=== PATIENT | female | born 1930 | race Caucasian/White ===

== ENCOUNTER 2017-10-02 14:24 | Inpatient (IN) | payer OTHER ==
[~2017-10-02] VITALS: Ht 162.6 cm; Wt 57.9 kg
[2017-10-02 15:40] LABS: HEMATOCRIT 34.1 % (36.0-46.0); HEMOGLOBIN 11.6 G/DL (11.9-15.5); MCH 30.4 PG (29.0-34.0); MCV 89.5 FL (83-99); PLATELET COUNT 294 K/uL (156-360); RBC DIS.WIDTH-CV 13.6 % (11.8-14.6); RBC DIS.WIDTH-SD 45.1 % (39-53); RED BLOOD COUNT 3.81 M/uL (3.80-5.20); WHITE BLOOD COUNT 8.3 K/uL (4.1-10.2)
[2017-10-02 15:50] LABS: ALBUMIN 3.8 g/dL (3.2-4.8); CHLORIDE 103 mEq/L (99-109); POTASSIUM 3.5 mEq/L (3.7-5.4); SODIUM 136 mEq/L (136-147)
[2017-10-02 15:53] LABS: GLUCOSE 95 mg/dL (70-99); TOTAL PROTEIN 6.5 g/dL (6.4-8.3)
[2017-10-02 15:54] LABS: TOTAL BILIRUBIN 0.5 mg/dL (0.0-1.0)
[2017-10-02 15:56] LABS: ALKALINE PHOSPHATASE 107 IU/L (3-129); CREATININE 0.9 mg/dL (0.6-1.3); GFR ESTIMATE (CALCULATED) > 59 mL/min/
[2017-10-02 15:57] LABS: UREA NITROGEN (BUN) 13 mg/dL (9-23)
[2017-10-02 15:58] LABS: AST (GOT) 18 IU/L (2-34)
[2017-10-02 15:59] LABS: ALT (GPT) 9 IU/L (3-49)
[2017-10-02 17:12] LABS: APPEARANCE CLEAR ((CLEAR)); BILIRUBIN NEGATIVE; BLOOD NEGATIVE; COLOR YELLOW ((YELLOW)); GLUCOSE (STRIP) NEGATIVE; KETONES 5; LEUKOCYTES NEGATIVE; NITRITE NEGATIVE; PROTEIN (STRIP) NEGATIVE; SPECIFIC GRAVITY 1.005 (1.000-1.030); UROBILINOGEN 0.2 MG/DL (0.2-1.0)
[2017-10-02] MEDS ORDERED: SERTRALINE HCL50 MG PO (23:35)
[2017-10-02] MEDS ORDERED: LORAZEPAM0.5 MG PO (23:36)
[2017-10-02] MEDS ORDERED: AMLODIPINE BESYL5 MG PO (23:38)
[2017-10-02] MEDS ORDERED: LEVOTHYROXINE88 MCG PO (23:39)
[2017-10-02] MEDS ORDERED: ALEVE220 MG PO (23:41)
[2017-10-02] MEDS ORDERED: MACUVITE WITH1 EACH PO (23:42)
[2017-10-03 00:43] VITALS: BP 127/60
[2017-10-03 03:30] VITALS: BP 112/54
[2017-10-03 06:08] LABS: BASOPHIL (%) 0.7 % (0-1); EOSINOPHIL (%) 1.8 % (0-5); EOSINOPHIL COUNT 0.1 K/uL (0-0.3); HEMATOCRIT 32.6 % (36.0-46.0); HEMOGLOBIN 10.6 G/DL (11.9-15.5); IMMATURE GRANULOCYTE (%) 0.4 % (0.0-0.7); LYMPHOCYTE (%) 21.2 % (15-42); LYMPHOCYTE COUNT 1.2 K/uL (1.0-2.8); MCH 29.8 PG (29.0-34.0); MCHC 32.5 G/DL (30.0-36.0); MCV 91.6 FL (83-99); MONOCYTE COUNT 0.4 K/uL (0-0.8); NEUTROPHIL (%) 67.9 % (45-76); NEUTROPHIL COUNT 3.7 K/uL (1.8-6.4); PLATELET COUNT 258 K/uL (156-360); RBC DIS.WIDTH-CV 13.7 % (11.8-14.6); RBC DIS.WIDTH-SD 46.6 % (39-53); RED BLOOD COUNT 3.56 M/uL (3.80-5.20); WHITE BLOOD COUNT 5.5 K/uL (4.1-10.2)
[2017-10-03 06:12] LABS: ALKALINE PHOSPHATASE 80 IU/L (3-129); ALT (GPT) 7 IU/L (3-49); AST (GOT) 13 IU/L (2-34); CHLORIDE 110 MEQ/L (99-109); CREATININE 0.7 MG/DL (0.6-1.3); GFR ESTIMATE (CALCULATED) > 59 mL/min/; GLUCOSE 75 mg/dL (70-99); POTASSIUM 3.3 MEQ/L (3.7-5.4); SODIUM 141 MEQ/L (136-147); TOTAL BILIRUBIN 0.5 MG/DL (0.0-1.0); TOTAL PROTEIN 5.1 G/DL (6.4-8.3); UREA NITROGEN (BUN) 8 mg/dL (9-23)
[2017-10-03 07:10] VITALS: BP 110/54
[2017-10-03 15:28] VITALS: BP 132/61
[2017-10-03 19:25] VITALS: BP 115/56
[2017-10-03 23:30] VITALS: BP 120/62
[2017-10-04 03:44] VITALS: BP 123/60
[2017-10-04 07:38] VITALS: BP 138/67
[2017-10-04 08:01] LABS: CHLORIDE 107 MEQ/L (99-109); CREATININE 0.6 MG/DL (0.6-1.3); GFR ESTIMATE (CALCULATED) > 59 mL/min/; GLUCOSE 76 mg/dL (70-99); POTASSIUM 3.7 MEQ/L (3.7-5.4); SODIUM 138 MEQ/L (136-147); UREA NITROGEN (BUN) 8 mg/dL (9-23)
[2017-10-04 08:52] LABS: THYROTROPIN (TSH) 3.8 MIU/L (0.4-5.5)
[2017-10-04 11:39] VITALS: BP 120/60
[2017-10-04 15:12] VITALS: BP 156/67
[2017-10-04 19:44] VITALS: BP 143/65
[2017-10-05 00:48] VITALS: BP 140/65
[2017-10-05 04:37] VITALS: BP 139/64
[2017-10-05 06:54] LABS: HEMATOCRIT 33.9 % (36.0-46.0); HEMOGLOBIN 11.4 G/DL (11.9-15.5); MCH 30.7 PG (29.0-34.0); MCHC 33.6 G/DL (30.0-36.0); MCV 91.4 FL (83-99); PLATELET COUNT 245 K/uL (156-360); RBC DIS.WIDTH-CV 13.8 % (11.8-14.6); RBC DIS.WIDTH-SD 46.1 % (39-53); RED BLOOD COUNT 3.71 M/uL (3.80-5.20); WHITE BLOOD COUNT 5.8 K/uL (4.1-10.2)
[2017-10-05 07:16] VITALS: BP 138/63
[2017-10-05 08:06] LABS: CHLORIDE 107 MEQ/L (99-109); CREATININE 0.7 MG/DL (0.6-1.3); FERRITIN 17 NG/ML (10-291); GFR ESTIMATE (CALCULATED) > 59 mL/min/; GLUCOSE 90 mg/dL (70-99); IRON 29 MCG/DL (35-150); POTASSIUM 3.4 MEQ/L (3.7-5.4); SODIUM 140 MEQ/L (136-147); TRANSFERRIN (TIBC) 203.5 mg/dL (215-380); TRANSFERRIN SATUR. 14 % (20-55); UREA NITROGEN (BUN) 9 mg/dL (9-23)
[2017-10-05 15:45] VITALS: BP 111/70
[2017-10-05 19:52] VITALS: BP 131/59
[2017-10-05 23:32] VITALS: BP 159/63
[2017-10-06 04:07] VITALS: BP 144/65
[2017-10-06 07:28] LABS: CHLORIDE 105 MEQ/L (99-109); CREATININE 0.7 MG/DL (0.6-1.3); GFR ESTIMATE (CALCULATED) > 59 mL/min/; GLUCOSE 79 mg/dL (70-99); SODIUM 139 MEQ/L (136-147); UREA NITROGEN (BUN) 9 mg/dL (9-23)
[2017-10-06 07:40] LABS: POTASSIUM 4.3 MEQ/L (3.7-5.4)
[2017-10-06 07:54] VITALS: BP 132/60
[2017-10-06 16:24] VITALS: BP 137/63
[2017-10-07 00:23] VITALS: BP 128/64
[2017-10-07 08:25] VITALS: BP 135/61
[2017-10-07] MEDS ORDERED: NICOTINE PATCH1 EAC1 TD (10:55)
[2017-10-07] MEDS ORDERED: BENTYL20 MG PO (10:55)
[2017-10-07] MEDS ORDERED: FERROUS SULFAT325 MG PO (10:56)
[2017-10-07] MEDS ORDERED: CYANOCOBAL1000 MCG/2 SC (10:56)
[2017-10-07] MEDS ORDERED: SENNA LAX8.6 MG PO (10:57)
[2017-10-07] MEDS ORDERED: POLYETHYLENE GL17 GM PO (10:57)
[2017-10-07] MEDS ORDERED: BISACODYL5 MG PO (10:58)
== END 2017-10-07 14:03 | DRG 390 ==
LOC: EME 14:24 → EDOF 21:24 → ENRESERV 21:28 → 2EAST 10-03 00:22
PROVIDERS: Internal Medicine; Physician Assistant
DX: K56.7 Ileus, unspecified (principal); I10 Essential (primary) hypertension; F17.200 Nicotine dependence, unspecified, uncomplicated; E87.6 Hypokalemia; K59.00 Constipation, unspecified; E03.9 Hypothyroidism, unspecified; E53.8 Deficiency of other specified B group vitamins; F32.9 Major depressive disorder, single episode, unspecified; D64.9 Anemia, unspecified; H35.30 Unspecified macular degeneration; R19.4 Change in bowel habit; F09 Unspecified mental disorder due to known physiological condition; F41.9 Anxiety disorder, unspecified; Z80.8 Family history of malignant neoplasm of other organs or systems; H91.90 Unspecified hearing loss, unspecified ear; Z90.710 Acquired absence of both cervix and uterus; Z85.3 Personal history of malignant neoplasm of breast; Z80.51 Family history of malignant neoplasm of kidney
CPT/HCPCS: 71045; 74018; 74019; 74177; 80048; 80053; 81003; 82272; 82607; 82728; 83540; 84443; 84466; 85025; 85027; 86340 90; 97530 GO; 99281; 99285; G0378; G8978 GP CM; G8979 CJ; G8987 GO CM; G8988 GO CK; J1644; J3420; J7030; J7040; S0028

== ENCOUNTER 2017-11-16 12:52 | Emergency (ER) | payer OTHER ==
[~2017-11-16] VITALS: Ht 172.7 cm; Wt 55.9 kg
[~2017-11-16 12:52] MED LIST: ALEVE220 MG PO; AMLODIPINE BESYL5 MG PO; BENTYL20 MG PO; BISACODYL5 MG PO; CYANOCOBAL1000 MCG/2 SC; FERROUS SULFAT325 MG PO; LEVOTHYROXINE88 MCG PO; LORAZEPAM0.5 MG PO; MACUVITE WITH1 EACH PO; NICOTINE PATCH1 EAC1 TD; POLYETHYLENE GL17 GM PO; SENNA LAX8.6 MG PO; SERTRALINE HCL50 MG PO
[2017-11-16 14:16] LABS: HEMATOCRIT 36.1 % (36.0-46.0); HEMOGLOBIN 12.1 G/DL (11.9-15.5); MCHC 33.5 G/DL (30.0-36.0); MCV 92.6 FL (83-99); PLATELET COUNT 282 K/uL (156-360); RBC DIS.WIDTH-CV 14.5 % (11.8-14.6); WHITE BLOOD COUNT 6.8 K/uL (4.1-10.2)
[2017-11-16 14:25] LABS: PTT 30.8 SEC (25-37)
[2017-11-16 14:27] LABS: CHLORIDE 105 mEq/L (99-109); POTASSIUM 4.5 mEq/L (3.7-5.4); SODIUM 140 mEq/L (136-147)
[2017-11-16 14:28] LABS: GLUCOSE 89 mg/dL (70-99)
[2017-11-16 14:32] LABS: CREATININE 0.8 mg/dL (0.6-1.3); GFR ESTIMATE (CALCULATED) > 59 mL/min/
[2017-11-16 14:33] LABS: UREA NITROGEN (BUN) 13 mg/dL (9-23)
[2017-11-16 14:37] LABS: TROP-I INTERPRETATION NEGATIVE; TROPONIN-I < 0.01 ng/mL (0.0-0.30)
[2017-11-16 17:03] LABS: THYROTROPIN (TSH) 5.2 MIU/L (0.4-5.5)
[2017-11-16] MEDS ORDERED: LASIX20 MG PO (18:20)
[2017-11-16 18:35] VITALS: BP 137/56
== END 2017-11-16 18:57 | disposition home or self-care (01) ==
LOC: EME 12:52
PROVIDERS: Nurse Practitioner Family
DX: R60.0 Localized edema (principal); M81.0 Age-related osteoporosis without current pathological fracture; M19.072 Primary osteoarthritis, left ankle and foot; I70.0 Atherosclerosis of aorta; I10 Essential (primary) hypertension; E03.9 Hypothyroidism, unspecified; Z85.3 Personal history of malignant neoplasm of breast; Z90.10 Acquired absence of unspecified breast and nipple; F17.200 Nicotine dependence, unspecified, uncomplicated
CPT/HCPCS: 71046; 73610; 73630; 80048; 83880; 84439; 84443; 84484; 85027; 85610; 85730; 93005; 93971; 99281; 99285

== ENCOUNTER 2017-12-26 08:27 | Emergency (ER) | payer OTHER ==
[~2017-12-26] VITALS: Ht 172.7 cm; Wt 57.6 kg
[~2017-12-26 08:27] MED LIST changes: +LASIX20 MG PO
[2017-12-26 09:20] LABS: HEMATOCRIT 33.6 % (36.0-46.0); HEMOGLOBIN 11.2 G/DL (11.9-15.5); MCH 31.2 PG (29.0-34.0); MCHC 33.3 G/DL (30.0-36.0); MCV 93.6 FL (83-99); PLATELET COUNT 344 K/uL (156-360); RBC DIS.WIDTH-CV 13.9 % (11.8-14.6); RBC DIS.WIDTH-SD 47.3 % (39-53); RED BLOOD COUNT 3.59 M/uL (3.80-5.20); WHITE BLOOD COUNT 7.4 K/uL (4.1-10.2)
[2017-12-26 09:45] LABS: TROP-I INTERPRETATION NEGATIVE; TROPONIN-I < 0.01 ng/mL (0.0-0.30)
[2017-12-26 09:53] LABS: CHLORIDE 107 MEQ/L (99-109); CREATININE 0.9 MG/DL (0.6-1.3); GFR ESTIMATE (CALCULATED) > 59 mL/min/; GLUCOSE 92 mg/dL (70-99); POTASSIUM 3.8 MEQ/L (3.7-5.4); SODIUM 141 MEQ/L (136-147); UREA NITROGEN (BUN) 13 mg/dL (9-23)
[2017-12-26 10:15] LABS: APPEARANCE CLEAR ((CLEAR)); BILIRUBIN NEGATIVE; BLOOD NEGATIVE; COLOR YELLOW ((YELLOW)); GLUCOSE (STRIP) NEGATIVE; KETONES NEGATIVE; LEUKOCYTES NEGATIVE; NITRITE NEGATIVE; PROTEIN (STRIP) NEGATIVE; SPECIFIC GRAVITY 1.005 (1.000-1.030); UCUL ADDED? NO; UROBILINOGEN 0.2 MG/DL (0.2-1.0)
[2017-12-26 12:44] LABS: CREATINE KINASE 91 IU/L (1-294)
[2017-12-26 15:41] VITALS: BP 127/64
== END 2017-12-26 15:43 | disposition home or self-care (01) ==
LOC: EME 08:27
PROVIDERS: Emergency Medicine
DX: Z04.3 Encounter for examination and observation following other accident (principal)
CPT/HCPCS: 71045; 80048; 81003; 82550; 84484; 85027; 93005; 99281; 99284; J7030

== ENCOUNTER 2017-12-28 02:49 | Emergency (ER) | payer OTHER ==
[~2017-12-28] VITALS: Ht 167.6 cm; Wt 56.1 kg
[2017-12-28 03:32] LABS: HEMATOCRIT 34.3 % (36.0-46.0); HEMOGLOBIN 11.4 G/DL (11.9-15.5); MCH 30.9 PG (29.0-34.0); MCHC 33.2 G/DL (30.0-36.0); PLATELET COUNT 304 K/uL (156-360); RBC DIS.WIDTH-CV 13.8 % (11.8-14.6); RBC DIS.WIDTH-SD 47.3 % (39-53); RED BLOOD COUNT 3.69 M/uL (3.80-5.20); WHITE BLOOD COUNT 7.6 K/uL (4.1-10.2)
[2017-12-28 03:41] LABS: CHLORIDE 107 mEq/L (99-109); SODIUM 140 mEq/L (136-147)
[2017-12-28 03:42] LABS: GLUCOSE 100 mg/dL (70-99)
[2017-12-28 03:46] LABS: CREATININE 0.8 mg/dL (0.6-1.3); GFR ESTIMATE (CALCULATED) > 59 mL/min/
[2017-12-28 03:47] LABS: UREA NITROGEN (BUN) 14 mg/dL (9-23)
[2017-12-28 03:55] LABS: TROP-I INTERPRETATION NEGATIVE; TROPONIN-I 0.01 ng/mL (0.0-0.30)
[2017-12-28] MEDS ORDERED: TRAMADOL HCL50 MG PO (06:18)
[2017-12-28] MEDS ORDERED: SEROQUEL12.5 MG PO (06:18)
[2017-12-28 07:21] VITALS: BP 153/73
== END 2017-12-28 07:23 | disposition home or self-care (01) ==
LOC: EME → EDBD 02:49 → EME 02:49
PROVIDERS: Emergency Medicine
PROC: 0JQ00ZZ Repair Scalp Subcutaneous Tissue and Fascia, Open Approach (ICD-10-PCS; principal; 2017-12-28)
DX: S01.01XA Laceration without foreign body of scalp, initial encounter (principal); S00.93XA Contusion of unspecified part of head, initial encounter; W06.XXXA Fall from bed, initial encounter; Y92.003 Bedroom of unspecified non-institutional (private) residence as the place of occurrence of the external cause; R60.0 Localized edema; R53.1 Weakness; I10 Essential (primary) hypertension; F41.9 Anxiety disorder, unspecified; F32.9 Major depressive disorder, single episode, unspecified; Z87.891 Personal history of nicotine dependence; Z85.3 Personal history of malignant neoplasm of breast; Z90.10 Acquired absence of unspecified breast and nipple
CPT/HCPCS: 70450; 71045; 72125; 80048; 84484; 85027; 86850; 86870; 86900; 86901; 86905; 86920; 93005; 93971; 99281; 99284